=== PATIENT | female | born 1975 | race Caucasian/White ===

== ENCOUNTER 2016-10-05 06:38 | Day surgery (SDC) | payer OTHER ==
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
[2016-10-05] MEDS ORDERED: DOXYCYCLINE INJ 100 MG in NS 250 ML IV ONE (06:45)
[2016-10-05] MEDS ORDERED: LR 1,000 ML IV ONE (06:57)
[2016-10-05] MEDS ORDERED: LIDOCAINE 1% 2 ML INJ ID PRN (07:18)
[2016-10-05] MEDS ORDERED: LIDOCAINE 1% 2 ML INJ ONE (07:21)
[2016-10-05] MEDS ORDERED: MIDAZOLAM 2 MG/2 ML VIAL IVP ONE (08:04)
--- NOTE | 2016-10-05 08:06 | PDANEPAE ---
Anesthesia PST Note Patient's labs reviewed and patient appropriate for surgery: Yes
--- NOTE | 2016-10-05 08:06 | PDANEPAE ---
ANE History of Present Illness dysfunctional bleeding ANE Past Medical History - Cardiovascular History Hx Hypertension: No Hx Arrhythmias: No Hx Chest Pain: No Hx Coronary Artery / Peripheral Vascular Disease: No Hx CHF / Valvular Disease: No Hx Palpitations: No Cardiovascular History Comment: HEART MURMUR IN PAST. RUNS LOW BP AND HR - Pulmonary History Hx COPD: No Hx Asthma/Reactive Airway Disease: No Hx Recent Upper Respiratory Infection: No Hx Oxygen in Use at Home: No Hx Sleep Apnea: No Sleep Apnea Screening Result - Last Documented: Negative - Neurologic History Hx Cerebrovascular Accident: No Hx Seizures: No Hx Dementia: No - Endocrine History Hx Diabetes: No - Renal History Hx Renal Disorders: No - Liver History Hx Hepatic Disorders: No Hepatic History Comment: ANNEMARIE - Neurological & Psychiatric Hx Hx Neurological and Psychiatric Disorders: Yes Neurological / Psychiatric History Comment: ZOLOFT ANXIETY - Cancer History Hx Cancer: No - Congenital Disorder History Hx Congenital Disorders: No - GI History Hx Gastrointestinal Disorders: No - Other Health History Other Health History: NEG - Chronic Pain History Chronic Pain: No - Surgical History Prior Surgeries: EXPLANT BREAST SURG. ANNEMARIE. SINUS. TONSILLECTOMY ANE Review of Systems - Exercise capacity METS (RN): 6 METS ANE Patient History - Allergies Allergies/Adverse Reactions: adhesive tape Allergy (Verified 09/16/16 14:07) latex [Latex] Allergy (Verified 08/07/10 11:43) Penicillins Allergy (Verified 08/07/10 11:43) - Home Medications Home Medications: Vitamins 04/21/09 [Last Taken 09/09/16] Zoloft 04/21/09 [Last Taken 10/04/16 20:00] - NPO status NPO Since - Liquids (Date): 10/04/16 NPO Since - Liquids (Time): 20:00 NPO Since - Solids (Date): 10/04/16 NPO Since - Solids (Time): 19:00 - Smoking Hx Smoking Status: Never smoked - Family Anes Hx Family Hx Anesthesia Complications: NEG ANE Labs/Vital Signs - Vital Signs Blood Pressure: 105/74 Heart Rate: 54 Respiratory Rate: 15 O2 Sat (%): 99 Height: 162.56 cm Weight: 56.245 kg ANE Physical Exam - Airway Neck exam: FROM Mallampati Score: Class 1 Mouth exam: normal dental/mouth exam - Pulmonary Pulmonary: no respiratory distress - Cardiovascular Cardiovascular: regular rate and rhythym - ASA Status ASA Status: I (pt has piercing in lower lip) ANE Anesthesia Plan Anesthesia Plan: general endotracheal anesthesia
[2016-10-05] MEDS ORDERED: ROCURONIUM 50 MG/5 ML VIAL ONE (08:10)
[2016-10-05] MEDS ORDERED: LIDOCAINE 2% 100 MG/5 ML SYR ONE (08:10)
[2016-10-05] MEDS ORDERED: ONDANSETRON 4 MG/2 ML VIAL ONE (08:10)
[2016-10-05] MEDS ORDERED: fentaNYL 100 MCG/2 ML INJ ONE ×3 (08:10→10:07)
[2016-10-05] MEDS ORDERED: DEXAMETHASONE 4 MG/ML VIAL ONE (08:10)
[2016-10-05] MEDS ORDERED: PROPOFOL 200 MG/20 ML VIAL ONE (08:10)
--- NOTE | 2016-10-05 08:19 | PDHPUP ---
History & Physical Update H&P update statement: This history and physical update is based on an assessment of the patient which was completed after admission or registration (within 24 hours), but prior to the surgery/procedure. H&P update: H&P reviewed & patient examined H&P changes: patient had surgery to have breast implants removed 4 weeks ago. uncomplicated surgery. patient has multiple piercings that she cannot remove. will take discussed risk of arcing
[2016-10-05] MEDS ORDERED: BUPIVACAINE 0.25% 30 ML SDV ONE (08:20)
[2016-10-05] MEDS ORDERED: BUPIVACAINE/EPI 0.5% 30 ML SDV ONE (08:20)
[2016-10-05] MEDS ORDERED: SILVER NITRATE APPLICATOR 1 APPL TP ONE (08:20)
[2016-10-05] MEDS ORDERED: DEXAMETHASONE 4 MG/ML VIAL IVP PRN (08:53)
[2016-10-05] MEDS ORDERED: NALOXONE HCL 0.4 MG/ML INJ IVP PRN (08:53)
[2016-10-05] MEDS ORDERED: fentaNYL 100 MCG/2 ML INJ IVP PRN (08:53)
[2016-10-05] MEDS ORDERED: PROMETHAZINE HCL 25 MG/ML INJ IVP PRN (08:53)
[2016-10-05] MEDS ORDERED: HYDROmorphONE/DILAUDID 1 MG/ML SYR IVP PRN (08:53)
[2016-10-05] MEDS ORDERED: GLYCOPYRROLATE 0.2 MG/1 ML VIAL ONE ×2 (09:29→09:38)
[2016-10-05] MEDS ORDERED: NEOSTIGMINE METHYLSULFATE 5 MG/5 ML SYR ONE (09:29)
[2016-10-05] MEDS ORDERED: KETOROLAC 30 MG/1 ML SDV IVP ONE (10:06)
[2016-10-05] MEDS ORDERED: KETOROLAC 30 MG/1 ML SDV ONE (10:14)
--- NOTE | 2016-10-05 10:25 | POSTANESTH ---
Post Anesthetic Evaluation Cardiovascular Status: Normal, Stable Respiratory Status: Normal, Stable Level of Consciousness/Mental Status: Can Participate in Eval Pain Control: Adequate, Prn Tx Ordered Nausea/Vomiting Control: Adequate, Prn Tx Ordered Complications Possibly Related to Anesthesia: None Noted
[2016-10-05 11:02] VITALS: PULSE 67; RESP 12; TEMP 97.9
[2016-10-05 11:26] VITALS: BP 125/80; O2SAT 98
--- NOTE | 2016-10-06 10:47 | GOP ---
[f rep st] OPERATIVE REPORT DATE OF OPERATION: 10/06/2016 SURGEON: Gloria Umana DO [employer] COUNSELOR: Jessica Key MD. ANESTHESIOLOGIST: . PREOPERATIVE DIAGNOSIS: 1. Menorrhagia. 2. Family status complete. POSTOPERATIVE DIAGNOSIS: 1. Menorrhagia. 2. Family status complete. PROCEDURE PERFORMED: 1. Extraction of IUD. 2. Hysteroscopy. 3. Morcellation of endometrial tissue and an endometrial ablation. 4. Laparoscopic bilateral salpingectomies. FINDINGS: 1. Exam under anesthesia: IUD in place. Mobile, midposition uterus with no adnexal masses. 2. Hysteroscopic findings: Slightly thickened endometrium with bilateral tubal ostia visualized. No obvious polyps, fibroids, or masses. 1. Laparoscopic findings: Normal ovaries, uterus, and tubes. Normal upper abdominal cavity. Abse nt gallbladder. 3. SPECIMENS: Endometrial curettings and bilateral fallopian tubes. ESTIMATED BLOOD LOSS: 10 cc. INDICATIONS: The patient is a 41-year-old, 6, para 2-0-4-2, who has history of progressivel y worsening and heavier periods. She has cramps with her periods, and midcycle spotting and crampin g. The patient has had a ParaGard, and is not interested in using a Mirena IUD or any other forms o f hormones. Her family status is complete. Patient would like to have permanent sterilization with bilateral salpingectomies as well as an endometrial ablation. Risks and benefits extensively revie wed with the patient, and the patient has been properly consented. DESCRIPTION OF PROCEDURE: Patient was taken to the operating room with intravenous fluids in place. She was given 100 mg of doxycycline intravenously. She was then placed on the operating room tabl e in a dorsal supine position, where general anesthesia was obtained. She was then repositioned int o the dorsal lithotomy position with the Yellofin stirrups, and prepped and draped in a normal steri le fashion. Exam under anesthesia revealed a mobile, midposition uterus with no adnexal masses. A speculum was then placed in the patient's vagina. An Allis clamp was used to grasp the anterior lip of the cervix. The IUD strings were grasped and the IUD was removed without difficulty. The cervi x was then carefully dilated to allow for the introduction of an operative hysteroscope. The hyster oscope was then introduced with fluid medium running. Overall, unremarkable endometrial cavity was noted. Bilateral tubal ostia were visualized. No obvious polyps or fibroids were noted. Slightly thickened endometrium was noted. The morcellator was then introduced, and a circumferential morcell ation was performed. The hysteroscope was then withdrawn and the Natasha apparatus was then inserte d, and endometrial ablation was performed without difficulty. The Natasha was then withdrawn and th e hysteroscope was then reintroduced, and a diffusely ablated endometrial cavity was noted. The hys teroscope was then withdrawn and acorn uterine manipulator was then inserted into the cervix. Glove s were changed and attention was then turned to the patient's abdomen, where a 5 mm skin incision wa s then made in the umbilicus. A 5 mm trocar was then advanced into the patient's abdomen under dire ct visualization. The abdomen was then insufflated with CO2 gas until an adequate pneumoperitoneum was achieved. The area underneath the trocar insertion site was found to be explored and found to b e unremarkable. The upper abdomen was explored. She was status post cholecystectomy, but otherwise unremarkable upper abdomen. The ovaries, uterus, and tubes were unremarkable. Two additional 5 mm trocars were placed in the patient's abdomen in the right and left lower quadrants. This was done under direct visualization. The left fallopian tube was then identified, followed out to its fimbri ated end, then grasped the fimbriated end. LigaSure was then removed to perform a salpingectomy on the left side. The tube was then withdrawn through the trocar. Attention was then turned to the robby burton's right side, where the fallopian tube was then identified and followed out to its fimbriated end. It was grasped and a right salpingectomy was performed. The fallopian tube was then grasped a nd withdrawn through the trocar. The ovaries were unremarkable and the pedicles were hemostatic. T he uterus was unremarkable. The camera was then removed through the patient's abdomen. CO2 gas was expressed from the patient's abdomen, and the trocars were then removed without difficulty. The sk in incisions were then closed with 4-0 Monocryl in a subcuticular fashion. Instruments were then re moved from the patient's vagina. No bleeding was noted. Patient was then returned to the dorsal moreira pine position, where she was easily awakened from anesthesia. Sponge, lap, and needle counts were c ount x2. Patient was transferred to recovery room in stable condition. /[id number]/MODL
== END 2016-10-05 11:25 | disposition home or self-care (01) ==
LOC: FSGY 06:38
PROVIDERS: ATTEND Obstetrics & Gynecology
DX: N92.0 Excessive and frequent menstruation with regular cycle (principal); Z30.2 Encounter for sterilization; Z30.432 Encounter for removal of intrauterine contraceptive device; F41.9 Anxiety disorder, unspecified; F32.9 Major depressive disorder, single episode, unspecified; F43.10 Post-traumatic stress disorder, unspecified; Z88.0 Allergy status to penicillin
CPT/HCPCS: J1100; J1885; J2001; J2250; J2405; J2704; J2710; J3010